=== PATIENT | male | born 1990 | race Caucasian/White ===

== ENCOUNTER 2017-09-24 21:19 | Emergency (ER) | payer OTHER ==
[2017-09-24] MEDS: ACETAMINOPHEN 325 MG TAB PO (21:45)
== END 2017-09-24 22:49 | disposition home or self-care (01) ==
LOC: M ED 21:19
DX: S93.401A Sprain of unspecified ligament of right ankle, initial encounter (principal); X50.1XXA Overexertion from prolonged static or awkward postures, initial encounter; Y92.830 Public park as the place of occurrence of the external cause; Y93.67 Activity, basketball; Y99.9 Unspecified external cause status; J45.909 Unspecified asthma, uncomplicated; F17.200 Nicotine dependence, unspecified, uncomplicated
CPT/HCPCS: 73610